=== PATIENT | female | born 1960 | race Caucasian/White ===

== ENCOUNTER 2021-09-20 19:54 | Observation (INO) ==
[2021-09-21] MEDS ORDERED: Chloraseptic Spray 177 ML BOTTLE MM PRN (00:09)
[2021-09-21] MEDS ORDERED: Naloxone 0.4 MG/ML INJ IVP PRN (00:12)
[2021-09-21] MEDS ORDERED: *HR* Labetalol 20 MG/4 ML SYRINGE IVP ONE (00:12)
[2021-09-21] MEDS ORDERED: Acetaminophen IV 1,000 MG/100 ML BAG IVPB ONE (00:14)
[2021-09-21] MEDS ORDERED: 0.9 % Sodium Chloride 1,000 ML IVC SCH (00:15)
[2021-09-21 00:54] LABS: Hematocrit 40.8 % (35.3-44.9); Hemoglobin 12.9 g/dL (11.5-15.4); Mean Corpuscular HGB Conc 31.6 g/dL (31.6-35.5); Mean Corpuscular Hemoglobin 29.5 pg (28.0-33.3); Mean Corpuscular Volume 93.2 fL (83.0-100.0); Mean Platelet Volume 11.7 fL (9.4-12.4); Platelet Count 157 K/mcL (140-400); Red Blood Count 4.38 M/mcL (3.82-4.97); Red Cell Distribution Width 13.1 % (11.5-14.5); White Blood Count 6.7 K/mcL (4.3-11.1)
[2021-09-21 01:03] LABS: INR 1.1; Prothrombin Time 11.9 Seconds (9.4-12.1)
[2021-09-21 01:06] LABS: Activated Partial Thrombo Time 34.5 Seconds (26.0-36.0)
[2021-09-21 01:13] LABS: BUN/Creatinine Ratio 20 (6-26); Blood Urea Nitrogen 14 mg/dL (8-23); Calcium 7.9 mg/dL (8.6-10.3); Carbon Dioxide 22 mEq/L (23-29); Chloride 110 mEq/L (98-107); Chol/HDL Ratio 3.9 (0-4.9); Cholesterol 174 mg/dL (< 200); Glucose 126 mg/dL (70-105); HDL Cholesterol 45 mg/dL (40-59); LDL Cholesterol,Calculated 100 mg/dL (< 100); Magnesium 1.8 mg/dL (1.6-2.6); Osmolality,Calculated 288 (280-300); Potassium 4.1 mEq/L (3.5-5.1); Sodium 138 mEq/L (136-145); Triglycerides 146 mg/dL (< 150); eGFR For African Americans > 60 (> 60); eGFR For Non-African Americans > 60 (> 60)
[2021-09-21] MEDS ORDERED: Ketorolac 30 MG/ML VIAL IVP PRN (01:37)
[2021-09-21 02:26] LABS: Influenza A PCR Negative (Negative); Influenza B PCR Negative (Negative); Resp. Syncytial Virus PCR Negative (Negative)
[2021-09-21 02:27] LABS: SARS-CoV-2 by PCR (In House) Negative (Negative)
[2021-09-21] MEDS: Ondansetron 4 MG/2 ML VIAL IVP PRN ×2 (08:24→20:41)
[2021-09-21] MEDS ORDERED: *HR* Labetalol 20 MG/4 ML SYRINGE IVP PRN (08:42)
[2021-09-21] MEDS ORDERED: *HR* LORazepam 2 MG/ML VIAL IVP PRN (08:44)
[2021-09-21] MEDS ORDERED: *HR* HYDROmorphone (PF) 1 MG/ML SYRINGE IVP PRN (09:35)
[2021-09-21 11:00] LABS: Estimated Average Glucose 114 mg/dl; Hemoglobin A1C 5.6 %
[2021-09-21] MEDS ORDERED: D5% in Lactated Ringers 1,000 ML IVC SCH (12:30)
[2021-09-21] MEDS: *HR* LORazepam 2 MG/ML VIAL IVP PRN (13:37)
[2021-09-21] MEDS ORDERED: MetroNIDAZOLE 500 MG/100 ML 500 MG/100 ML BAG IVPB SCH (17:37)
[2021-09-21] MEDS: MetroNIDAZOLE 500 MG/100 ML 500 MG/100 ML BAG IVPB SCH ×3 (20:41→23:31)
[2021-09-22] MEDS: *HR* LORazepam 2 MG/ML VIAL IVP PRN (03:25)
[2021-09-22] MEDS: MetroNIDAZOLE 500 MG/100 ML 500 MG/100 ML BAG IVPB SCH ×3 (04:01→22:01)
[2021-09-22 07:39] LABS: Hematocrit 43.2 % (35.3-44.9); Hemoglobin 13.9 g/dL (11.5-15.4); Mean Corpuscular HGB Conc 32.2 g/dL (31.6-35.5); Mean Corpuscular Hemoglobin 29.2 pg (28.0-33.3); Mean Corpuscular Volume 90.8 fL (83.0-100.0); Mean Platelet Volume 12.5 fL (9.4-12.4); Platelet Count 157 K/mcL (140-400); Red Blood Count 4.76 M/mcL (3.82-4.97); White Blood Count 7.2 K/mcL (4.3-11.1)
[2021-09-22 08:03] LABS: BUN/Creatinine Ratio 12 (6-26); Blood Urea Nitrogen 9 mg/dL (8-23); C-Reactive Protein 34 mg/L (Less than 10); Calcium 8.9 mg/dL (8.6-10.3); Carbon Dioxide 25 mEq/L (23-29); Chloride 108 mEq/L (98-107); Glucose 103 mg/dL (70-105); Osmolality,Calculated 291 (280-300); Potassium 4.8 mEq/L (3.5-5.1); Sodium 141 mEq/L (136-145); eGFR For African Americans > 60 (> 60); eGFR For Non-African Americans > 60 (> 60)
[2021-09-22] MEDS: Ondansetron 4 MG/2 ML VIAL IVP PRN (10:56)
[2021-09-22] MEDS ORDERED: *HR* Promethazine 25 MG/ML VIAL IM ONE ×2 (13:24→22:32)
[2021-09-22] MEDS ORDERED: Ibuprofen 600 MG TABLET PO ONE (23:29)
[2021-09-23 02:02] LABS: Basophils % 0.4 %; Eosinophils # 0.1 K/mcL (0.0-0.6); Eosinophils % 1.4 %; Immature Granulocytes % 0.1 % (0-4); Lymphocytes % 26.8 %; Mean Corpuscular HGB Conc 32.6 g/dL (31.6-35.5); Mean Corpuscular Volume 92.1 fL (83.0-100.0); Mean Platelet Volume 11.5 fL (9.4-12.4); Monocytes # 0.7 K/mcL (0.0-1.3); Monocytes % 9.8 %; Neutrophils # 4.5 K/mcL (1.6-8.9); Platelet Count 175 K/mcL (140-400); Red Blood Count 4.67 M/mcL (3.82-4.97); Red Cell Distribution Width 13.1 % (11.5-14.5); Segmented Neutrophils % 61.5 %; White Blood Count 7.3 K/mcL (4.3-11.1)
[2021-09-23 03:24] LABS: BUN/Creatinine Ratio 13 (6-26); Blood Urea Nitrogen 10 mg/dL (8-23); Calcium 8.5 mg/dL (8.6-10.3); Carbon Dioxide 26 mEq/L (23-29); Chloride 105 mEq/L (98-107); Glucose 90 mg/dL (70-105); Osmolality,Calculated 289 (280-300); Potassium 3.6 mEq/L (3.5-5.1); Sodium 140 mEq/L (136-145); eGFR For African Americans > 60 (> 60); eGFR For Non-African Americans > 60 (> 60)
[2021-09-23] MEDS: MetroNIDAZOLE 500 MG/100 ML 500 MG/100 ML BAG IVPB SCH (04:18)
[2021-09-23 07:07] VITALS: BP 135/79; PULSE 70; TEMP 97.8; O2SAT 92
== END 2021-09-23 13:29 | disposition home or self-care (01) ==
LOC: 3ANU → SUATTDRO 21:45
PROVIDERS: ADMIT Internal Medicine; ATTEND Student in an Organized Health Care Education/Training Program